=== PATIENT | female | born 1990 | race Caucasian/White ===

== ENCOUNTER 2018-04-13 02:02 | Emergency (ER) | payer OTHER ==
[~2018-04-13] VITALS: Ht 170.2 cm; Wt 62.1 kg
[~2018-04-13 02:02] MED LIST: MEDROLDOSEPACK PO; PREDNISONE50 MG PO; PROAIR HFA8.5 GM INH; ZOFRAN ODT4 MG PO; ZPAK PO
[2018-04-13] MEDS ORDERED: MEDROLDOSEPACK PO (02:49)
[2018-04-13] MEDS ORDERED: LIORESAL 10 MG10 MG PO (02:49)
[2018-04-13] MEDS ORDERED: FLEXERIL PO (02:49)
[2018-04-13 03:05] VITALS: BP 109/66
== END 2018-04-13 03:06 | disposition home or self-care (01) ==
LOC: M.ERS 02:02
DX: M54.41 Lumbago with sciatica, right side (principal); Z88.1 Allergy status to other antibiotic agents